=== PATIENT | male | born 1955 | race Caucasian/White ===

== ENCOUNTER 2017-09-06 05:40 | Day surgery (SDC) | payer MEDICARE, OTHER ==
[~2017-09-06] VITALS: Ht 180.3 cm; Wt 154.2 kg
[~2017-09-06 05:40] MED LIST: ASPIRIN325 MG PO; GLIPIZIDE10 MG PO; JANUMET 50-1,01 EACH PO; LANTUS100 UNITS/ SUB-Q; LIPITOR40 MG PO; LISINOPRIL-HCT1 EACH PO; TOPROL XL25 MG PO
--- NOTE | 2017-09-06 08:15 | NUR ---
09/06/17 0815 Mary Quiroz 0803-PATIENT ARRIVED TO PACU ON CPAP WIHT 1OL BLEED IN. PATIENT DROWSY EYES OPEN. LAYING LEFT LATERAL. BP 86/55 PATIENT SR WITH PVC, BIGEMINIY IN OR. GLUCOSE 202. 0808-PATIENT AWAKE REPOSITIONED TO BACK BP INCREASED TO 103/71. ENCOURAGED TO PASS FLATUS. RR EVEN.
--- NOTE | 2017-09-06 09:52 | OR ---
[facility] [address] [place], [place] [address] Signed DATE OF OPERATION: 09/06/2017 SURGEON: Paxton Pathak MD PREOPERATIVE DIAGNOSIS: Screening. POSTOPERATIVE DIAGNOSES: 1. 4 mm polyps x3 at 15 cm (rectum). 2. Moderate sigmoid diverticulosis. 3. Minimal internal hemorrhoids. PROCEDURE: Colonoscopy with hot biopsy. ESTIMATED BLOOD LOSS: None. INDICATIONS: Kunal is a 61-year-old, obese, diabetic gentleman with a heavy full neck and a full face holder. He has been asked to see me for his initial screening colonoscopy. He has no lower GI complaints. There is no family history of colon cancer or polyps. Kunal also has significant heart disease and he has had ascending aortic aneurysm replaced along with his aortic valve. He has also had previous strokes. In the office, I gave him a pamphlet on colonoscopy. We looked at that together along with the risks including, but not limited to gas bloating, crampy abdominal pain, bleeding, perforation, requiring surgery, and missed diagnosis. We also discussed the need for IV conscious sedation. Given what I have described above, we asked an anesthesia provider to help us with increased monitoring and sedation with propofol. That proved to be a calvillo decision. Kunal's EKG showed a sinus rhythm with premature atrial contractions. Today, he spent quite a bit of his time in [facility]. We were thankful to have our anesthesia provider along with Kunal's BiPAP mask. Kunal had expressed understanding and wished to proceed. PROCEDURE NOTE: Kunal was taken into our endoscopy suite and placed in the left lateral decubitus position. He was given a preoperative antibiotic because of his heart surgery. We used his BiPAP mask for our procedure. He was given propofol for IV sedation. After this, a digital rectal exam was performed and he is a large man, but I could reach about a 3rd of the prostate. It was indurated and one side is a little more prominent than the other. He might consider reviewing that prostate exam with his primary care provider. Electronically Signed By: PAXTON PATHAK MD 09/06/17 0952 PATIENT NAME: KUNAL SPRAGUE OPERATIVE REPORT DATE OF : 55 REPORT #: [id number] PHYSICIAN: PAXTON PATHAK MD PCP: KERI SEXTON PAC REPORT IS CONFIDENTIAL AND NOT TO BE RELEASED WITHOUT AUTHORIZATION [facility] [address] [place], [place] [address] Signed After this, the adult colonoscope was introduced and advanced under direct visualization of camera into the cecum itself. Overall, his prep was good. He had a few areas of mucousy liquidy stool, most of which I could suction out. We had taken pictures throughout for photodocumentation. The scope was then slowly withdrawn. He does have moderate sigmoid diverticulosis. They are moderate in size, moderate in number, and scattered about. At the top of his rectum at 15 cm, were three small polyps, we removed with the help of hot biopsy forceps. Upon retroflexion of scope, he does have some minimal internal hemorrhoid tissue. After this, the gas was suctioned out and the colonoscope removed. Kunal tolerated the procedure quite well. RECOMMENDATIONS: I will see Kunal back in my office in 7 to 14 days to review his results. He will resume all his medications today except he will hold the aspirin for 1 week. Paxton Pathak MD ALB/MODL /[id number] cc: TERESITA Reyes MD Copies: KERI SEXTON ANDREW L MD ~ Electronically Signed By: PAXTON PATHAK MD 09/06/17 0952 PATIENT NAME: CELESTINEKUNAL OPERATIVE REPORT DATE OF : 55 REPORT #: [id number] PHYSICIAN: PAXTON PATHAK MD PCP: KERI SEXTON REPORT IS CONFIDENTIAL AND NOT TO BE RELEASED WITHOUT AUTHORIZATION
== END 2017-09-06 09:00 | disposition home or self-care (01) ==
LOC: OPS 05:40 → DS 05:40 → OPS 06:45 → DS 06:45 → OPS 09:00
PROVIDERS: Colon & Rectal Surgery
PROC: 0DBN8ZZ Excision of Sigmoid Colon, Via Natural or Artificial Opening Endoscopic (ICD-10-PCS; principal; 2017-09-06 06:45)
DX: Z12.11 Encounter for screening for malignant neoplasm of colon (principal); K63.5 Polyp of colon; K57.30 Diverticulosis of large intestine without perforation or abscess without bleeding; K64.8 Other hemorrhoids; I10 Essential (primary) hypertension; E11.9 Type 2 diabetes mellitus without complications; E78.5 Hyperlipidemia, unspecified; E66.9 Obesity, unspecified; Z86.73 Personal history of transient ischemic attack (TIA), and cerebral infarction without residual deficits; Z88.5 Allergy status to narcotic agent; Z79.4 Long term (current) use of insulin; Z79.82 Long term (current) use of aspirin; Z79.899 Other long term (current) drug therapy; Z68.42 Body mass index [BMI] 45.0-49.9, adult
CPT/HCPCS: 88305; J2704; J7120